=== PATIENT | male | born 1985 | race Two or more races ===

== ENCOUNTER 2020-01-11 22:54 | Emergency (ER) | payer MEDICAID, OTHER ==
[~2020-01-11] VITALS: Ht 175.3 cm; Wt 98.0 kg
[2020-01-11] MEDS ORDERED: AZITHROMYCIN 500 MG TABLET PO ONE (23:45)
[2020-01-11] MEDS ORDERED: CEFTRIAXONE SODIUM 250 MG/VIAL IM ONE (23:45)
[2020-01-11] MEDS ORDERED: LIDOCAINE HCL/PF 1% 10 MG/ML 5ML VIAL IJ ONE (23:45)
[2020-01-12 00:19] VITALS: BP 137/88
== END 2020-01-12 00:21 | disposition home or self-care (01) ==
LOC: ER 22:54
DX: A54.9 Gonococcal infection, unspecified (principal)
CPT/HCPCS: 96372; 99283; J0696; J3490

== ENCOUNTER 2024-01-21 22:09 | Emergency (ER) | payer MEDICAID ==
[~2024-01-21] VITALS: Ht 177.8 cm; Wt 104.0 kg
[2024-01-21 22:43] VITALS: O2SAT 100
[2024-01-21 22:45] VITALS: PULSE 78; RESP 18; TEMP 98.5; O2SAT 98
[2024-01-21 23:26] LABS: CLARITY URINE CLEAR (CLEAR); COLOR URINE YELLOW (YELLOW); GLUCOSE URINE NEGATIVE (NEGATIVE); KETONES URINE NEGATIVE (NEGATIVE); LEUKOCYTE ESTERASE URINE NEGATIVE (NEGATIVE); NITRITE URINE NEGATIVE (NEGATIVE); OCCULT BLOOD URINE NEGATIVE (NEGATIVE); PROTEIN URINE NEGATIVE (NEGATIVE); SPECIFIC GRAVITY URINE 1.026 (1.005-1.030)
[2024-01-21] MEDS ORDERED: DOXY100T28 MT (23:33)
[2024-01-21] MEDS: CEFTRIAXONE SODIUM 500MG VIAL IM ONE (23:44)
[2024-01-21] MEDS: DOXYCYCLINE HYCLATE 100MG CAPSULE PO ONE (23:49)
[2024-01-23 17:06] LABS: CHLAMYDIA TRACHOMATIS NAA Negative (Negative); NEISSERIA GONORRHOEAE NAA Negative (Negative)
== END 2024-01-21 23:50 | disposition home or self-care (01) ==
LOC: ER 22:09
DX: A64 Unspecified sexually transmitted disease (principal); R30.9 Painful micturition, unspecified
CPT/HCPCS: 99283; 87491; 87591; 81003; 96372; J0696

== ENCOUNTER 2024-01-26 17:23 | Emergency (ER) | payer MEDICAID ==
[~2024-01-26] VITALS: Ht 177.8 cm; Wt 103.0 kg
[~2024-01-26 17:23] MED LIST: DOXY100T28 MT
[2024-01-26 17:44] VITALS: O2SAT 100
[2024-01-26] MEDS ORDERED: CEFTRIAXONE SODIUM 500MG VIAL IM ONE (18:00)
[2024-01-26] MEDS ORDERED: AZITHROMYCIN 500 MG TABLET PO ONE (18:00)
[2024-01-26 18:03] LABS: CLARITY URINE CLEAR (CLEAR); COLOR URINE YELLOW (YELLOW); GLUCOSE URINE NEGATIVE (NEGATIVE); KETONES URINE NEGATIVE (NEGATIVE); LEUKOCYTE ESTERASE URINE TRACE (NEGATIVE); NITRITE URINE NEGATIVE (NEGATIVE); OCCULT BLOOD URINE NEGATIVE (NEGATIVE); PH URINE 5.5 (4.5-8.0); PROTEIN URINE NEGATIVE (NEGATIVE); SPECIFIC GRAVITY URINE 1.029 (1.005-1.030)
[2024-01-26 18:42] LABS: BACTERIA URINE TRACE; RBC URINE 0-2 /hpf (0-2); SQUAMOUS EPITHELIAL CELL URINE RARE /lpf (RARE/1+)
[2024-01-26 21:00] VITALS: BP 109/65; PULSE 79; RESP 16; TEMP 36.66960; O2SAT 100
[2024-01-26] MEDS: CEFTRIAXONE SODIUM 500MG VIAL IM NR (21:00)
[2024-01-26] MEDS: AZITHROMYCIN 500 MG TABLET PO NR (21:00)
== END 2024-01-26 21:20 | disposition home or self-care (01) ==
LOC: ER 17:23
DX: N34.2 Other urethritis (principal); Z68.32 Body mass index [BMI] 32.0-32.9, adult
CPT/HCPCS: 99283; 81003; 96372; J0696

== ENCOUNTER 2024-02-10 00:15 | Emergency (ER) | payer MEDICAID ==
[~2024-02-10] VITALS: Ht 172.7 cm; Wt 105.0 kg
[2024-02-10] MEDS ORDERED: CEFTRIAXONE SODIUM 500MG VIAL IM ONE (00:30)
[2024-02-10 00:40] VITALS: TEMP 98; O2SAT 99
[2024-02-10] MEDS ORDERED: DOXY100C5 MT (01:16)
[2024-02-10 01:36] LABS: CLARITY URINE CLEAR (CLEAR); COLOR URINE YELLOW (YELLOW); GLUCOSE URINE NEGATIVE (NEGATIVE); KETONES URINE TRACE (NEGATIVE); LEUKOCYTE ESTERASE URINE TRACE (NEGATIVE); NITRITE URINE NEGATIVE (NEGATIVE); OCCULT BLOOD URINE NEGATIVE (NEGATIVE); PH URINE 6.5 (4.5-8.0); PROTEIN URINE NEGATIVE (NEGATIVE); SPECIFIC GRAVITY URINE 1.031 (1.005-1.030)
[2024-02-10] MEDS: CEFTRIAXONE SODIUM 500MG VIAL IM NR (02:17)
[2024-02-10 02:24] VITALS: BP 130/78; PULSE 76; RESP 16; O2SAT 96
[2024-02-10 02:29] LABS: WBC URINE 0-2 /hpf (0-2)
[2024-02-10 02:30] LABS: BACTERIA URINE NONE SEEN; RBC URINE 0-2 /hpf (0-2); SQUAMOUS EPITHELIAL CELL URINE NONE SEEN /lpf (RARE/1+)
[2024-02-12 09:09] LABS: CHLAMYDIA TRACHOMATIS NAA Negative (Negative); NEISSERIA GONORRHOEAE NAA Negative (Negative)
== END 2024-02-10 02:25 | disposition home or self-care (01) ==
LOC: ER 00:15
DX: Z11.3 Encounter for screening for infections with a predominantly sexual mode of transmission (principal)
CPT/HCPCS: 87491; 87591 ×2; 81003; 96372; 99283; J0696; Z7610 ×2

== ENCOUNTER 2024-05-02 20:54 | Emergency (ER) | payer MEDICAID ==
[~2024-05-02 20:54] MED LIST changes: +DOXY100C5 MT
[2024-05-02 21:09] VITALS: PULSE 90; O2SAT 98
== END 2024-05-02 22:40 | disposition left against medical advice (07) ==
LOC: ER 20:54
DX: A64 Unspecified sexually transmitted disease (principal); Z53.21 Procedure and treatment not carried out due to patient leaving prior to being seen by health care provider